=== PATIENT | female | born 1950 | race Caucasian/White ===

== ENCOUNTER 2017-11-14 13:13 | Outpatient (CLI) | payer MEDICARE | END 2017-11-14 13:14 | disposition home or self-care (01) | LOC: BICMAMMO 13:13 | PROVIDERS: ATTEND Obstetrics & Gynecology | DX: Z12.31 Encounter for screening mammogram for malignant neoplasm of breast (principal) | CPT/HCPCS: 77063; 77067 ==

== ENCOUNTER 2018-11-15 08:48 | Outpatient (CLI) | payer MEDICARE ==
--- NOTE | 2018-12-02 12:48 | MMO ---
Bilateral MAMMO Bilat Screen [facility]. CLINICAL HISTORY: Patient is 68 years old and is seen for screening. The patient has no family history of breast cancer. The patient has no personal history of cancer. The patient has a history o f right cyst aspiration - benign - lancing of infection. VIEWS: The views performed were: bilateral craniocaudal with tomosynthesis; bilateral mediolateral oblique with tomosynthesis; and right exaggerated craniocaudal. FILMS COMPARED: The present examination has been compared to prior imaging studies performed at [facility] on 11/14/2017, and at [facility] on 09/01/2014, 09/24/2015 and 11/07/2016. MAMMOGRAM FINDINGS: There are scattered fibroglandular densities. There are no suspicious masses, calcifications or areas of architectural distortion. Ultrasound of the palpable findingin the left breast was performed. In the right breast, there are no suspicious masses, calcifications or areas of architectural distortion. IMPRESSION: FINDING IN THE LEFT BREAST REQUIRES ADDITIONAL EVALUATION. AN ULTRASOUND EXAM IS RECOMMENDED. THE RESULTS OF THIS EXAM WERE SENT TO THE PATIENT. ACR BI-RADS Category 0 - Incomplete: Need additional imaging evaluation. [facility] will notify the patient of the need for additional imaging services. MAMMOGRAPHY NOTE: 1. A negative mammogram report should not delay a biopsy if a dominant of clinically suspicious mass is present. 2. Approximately 10% to 15% of breast cancers are not detected by mammography. 3. Adenosis and dense breasts may obscure an underlying neoplasm. Thank you for the consult, POS: OFF
== END 2018-11-15 08:49 | disposition home or self-care (01) ==
LOC: BICMAMMO 08:48
PROVIDERS: ATTEND Obstetrics & Gynecology
DX: Z12.31 Encounter for screening mammogram for malignant neoplasm of breast (principal)
CPT/HCPCS: 77063; 77067

== ENCOUNTER 2019-09-17 16:31 | Outpatient (CLI) | payer MEDICARE ==
--- NOTE | 2019-09-17 16:49 | RAD ---
EXAM: Chest Two Views 09/17/2019 4:46 PM HISTORY: History of asthma with fatigue and shortness of breath COMPARISON: 2 view chest radiograph dated December 07, 2011 FINDINGS: Heart: Normal in size and contour. Pulmonary vessels: Normal. Costophrenic angles: Clear. Lungs: There is a 4 cm mass in the right upper lobe, adjacent to the right major fissure which is new from the prior exam. The lungs remain hyperexpanded. Left lung is clear. Pneumothorax: None. Osseous structures:Intact. Additional findings: None. IMPRESSION: New right upper lobe lung mass. Further evaluation with a CT of the thorax utilizing IV contrast is r ecommended for additional characterization. Stable hyperinflation.
== END 2019-09-17 16:32 | disposition home or self-care (01) ==
LOC: BICRAD 16:31
PROVIDERS: ATTEND Family Medicine
DX: J45.909 Unspecified asthma, uncomplicated (principal); R91.8 Other nonspecific abnormal finding of lung field
CPT/HCPCS: 36415; 71046; 80053; 82306; 85025

== ENCOUNTER 2019-09-19 13:22 | Outpatient (CLI) | payer MEDICARE ==
[2019-09-19] MEDS ORDERED: Iopamidol-370 76% 500 ML 1 ML ONE (14:31)
--- NOTE | 2019-09-19 16:02 | CT ---
CT OF CERVICAL SPINE: 09/19/19 HISTORY: New right upper lobe lung mass. Shortness of breath, low grade fever for the past week. There is some pleural based parenchymal changes which are seen within the lingula and also within the right upper lobe and some somewhat nodular infiltrative change within the right lower lobe and pleur al based changes in both right lower and left lower lobes. No significant mediastinal or hilar adenopathy. The visualized liver parenchyma is normal. Right and left kidneys are normal. IMPRESSION: Multiple pleural based areas of lung consolidation. I would suspect that this represents a multifocal pneumonia but would require follow-up to resolution to exclude underlying mass. POS: [facility]
== END 2019-09-19 13:23 | disposition home or self-care (01) ==
LOC: BICCT 13:22
PROVIDERS: ATTEND Family Medicine
DX: R91.8 Other nonspecific abnormal finding of lung field (principal); J18.1 Lobar pneumonia, unspecified organism
CPT/HCPCS: 71260; Q9967

== ENCOUNTER 2019-09-23 10:40 | Outpatient (CLI) | payer MEDICARE ==
--- NOTE | 2019-09-23 11:00 | RAD ---
XR Chest Pa Lat STANDARD HISTORY: Shortness of breath COMPARISON: 09/17/2019 FINDINGS: The heart size is normal. The lungs are well expanded without pneumothorax or pleural effus ions. Patchy consolidation in the right upper lobe is again seen. IMPRESSION: Findings are suggestive of right-sided pneumonia. A follow-up exam after course of antibi otics is recommended in 4-6 weeks.
== END 2019-09-23 10:41 | disposition home or self-care (01) ==
LOC: BICRAD 10:40
PROVIDERS: ATTEND Family Medicine
DX: R06.02 Shortness of breath (principal)
CPT/HCPCS: 71046

== ENCOUNTER 2021-06-21 10:33 | Outpatient (CLI) | payer MEDICARE | END 2021-06-21 10:34 | disposition home or self-care (01) | LOC: BICMRI 10:33 | PROVIDERS: ATTEND Family Medicine | DX: M47.22 Other spondylosis with radiculopathy, cervical region (principal) | CPT/HCPCS: 72141 ==

== ENCOUNTER 2021-08-03 11:01 | Outpatient (CLI) | payer MEDICARE | END 2021-08-03 11:02 | disposition home or self-care (01) | LOC: BICMAMMO 11:01 | PROVIDERS: ATTEND Family Medicine | DX: Z12.31 Encounter for screening mammogram for malignant neoplasm of breast (principal) | CPT/HCPCS: 77063; 77067 ==

== ENCOUNTER 2022-07-04 13:48 | Outpatient (CLI) | payer MEDICARE | END 2022-07-04 13:49 | disposition home or self-care (01) | LOC: BICMAMMO 13:48 | PROVIDERS: ATTEND Family Medicine | DX: Z13.820 Encounter for screening for osteoporosis (principal); N95.9 Unspecified menopausal and perimenopausal disorder; M85.89 Other specified disorders of bone density and structure, multiple sites | CPT/HCPCS: 77080 ==

== ENCOUNTER 2022-09-13 10:00 | Outpatient (CLI) | payer MEDICARE | END 2022-09-13 10:01 | disposition home or self-care (01) | LOC: BICMAMMO 10:00 | PROVIDERS: ATTEND Family Medicine | DX: Z12.31 Encounter for screening mammogram for malignant neoplasm of breast (principal) | CPT/HCPCS: 77063; 77067 ==

== ENCOUNTER 2023-03-28 09:49 | Outpatient (CLI) | payer MEDICARE | END 2023-03-28 09:50 | disposition home or self-care (01) | LOC: RAD 09:49 | PROVIDERS: ATTEND Family Medicine | DX: R05.1 Acute cough (principal) | CPT/HCPCS: 71046 ==

== ENCOUNTER 2023-04-03 14:29 | Outpatient (CLI) | payer MEDICARE ==
[~2023-04-03 14:29] MED LIST: Iopamidol 370 76% 100 ML VIAL ONE
== END 2023-04-03 14:30 | disposition home or self-care (01) ==
LOC: BICCT 14:29
PROVIDERS: ATTEND Family Medicine
DX: J18.1 Lobar pneumonia, unspecified organism (principal)
CPT/HCPCS: 71260; Q9967

== ENCOUNTER 2023-05-04 15:22 | Outpatient (CLI) | payer MEDICARE | END 2023-05-04 15:23 | disposition home or self-care (01) | LOC: BICRAD 15:22 | PROVIDERS: ATTEND Family Medicine | DX: R91.1 Solitary pulmonary nodule (principal); J18.1 Lobar pneumonia, unspecified organism | CPT/HCPCS: 71046 ==

== ENCOUNTER 2023-09-21 09:20 | Outpatient (CLI) | payer MEDICARE | END 2023-09-21 09:21 | disposition home or self-care (01) | LOC: BICMAMMO 09:20 | PROVIDERS: ATTEND Family Medicine | DX: Z12.31 Encounter for screening mammogram for malignant neoplasm of breast (principal) | CPT/HCPCS: 77063; 77067 ==

== ENCOUNTER 2023-10-04 08:46 | Outpatient (CLI) | payer MEDICARE | END 2023-10-04 08:47 | disposition home or self-care (01) | LOC: CT 08:46 | PROVIDERS: ATTEND Internal Medicine | DX: J45.20 Mild intermittent asthma, uncomplicated (principal) | CPT/HCPCS: 71250 ==

== ENCOUNTER 2024-06-11 10:03 | Outpatient (CLI) | payer MEDICARE | END 2024-06-11 10:04 | disposition home or self-care (01) | LOC: BICRAD 10:03 | PROVIDERS: ATTEND Family Medicine | DX: J45.40 Moderate persistent asthma, uncomplicated (principal); R91.8 Other nonspecific abnormal finding of lung field; J98.4 Other disorders of lung | CPT/HCPCS: 71046 ==

== ENCOUNTER 2024-09-30 08:06 | Outpatient (CLI) | payer MEDICARE | END 2024-09-30 08:07 | disposition home or self-care (01) | LOC: BICMAMMO 08:06 | PROVIDERS: ATTEND Family Medicine | DX: Z12.31 Encounter for screening mammogram for malignant neoplasm of breast (principal) | CPT/HCPCS: 77063; 77067 ==

== ENCOUNTER 2025-05-20 11:52 | Outpatient (CLI) | payer MEDICARE | END 2025-05-20 11:53 | disposition home or self-care (01) | LOC: BICRAD 11:52 | PROVIDERS: ATTEND Family Medicine | DX: R06.02 Shortness of breath (principal) | CPT/HCPCS: 36415; 71046; 80053; 85025 ==

== ENCOUNTER 2025-06-25 08:59 | Outpatient (CLI) | payer MEDICARE | END 2025-06-25 09:00 | disposition home or self-care (01) | LOC: BICCT 08:59 | PROVIDERS: ATTEND Family Medicine | DX: J32.1 Chronic frontal sinusitis (principal); J34.89 Other specified disorders of nose and nasal sinuses ==